=== PATIENT | female | born 1940 ===

== ENCOUNTER → 2024-07-06 10:31 | Outpatient (REF) | payer MEDICARE, MEDICAID, SELFPAY ==
[2024-07-06 11:26] LABS: % Basophils 0.7 % (0-2); % Eosinophils 2.6 % (0-6); % Immature Granulocytes 0.3 % (0-0.5); % Lymphocytes 37.4 % (20.5-51.1); % Monocytes 10.8 % (1.7-9.3); % Neutrophils 48.2 % (42.2-75.2); Absolute Eosinophils 0.2 10^3/uL (0-0.7); Absolute Lymphocytes 2.1 10^3/uL (1.2-3.4); Absolute Monocytes 0.6 10^3/uL (0.1-0.6); Absolute Neutrophils 2.8 10^3/uL (1.4-6.5); Hematocrit 37.5 % (37.0-47.0); Hemoglobin 12.2 g/dL (12.0-16.0); Mean Corp Hgb Conc. 32.5 g/dL (33.0-37.0); Mean Corpuscular Hgb 29.6 pg (27.0-31.0); Mean Platelet Volume 9.7 fL (7.4-10.4); Nucleated Red Blood Cells % 0 %; Platelet Count 270 10^3/uL (130-400); Red Blood Cell Count 4.12 10^6/uL (4.20-5.40); Red Cell Dist. Width 15.6 % (11.5-14.5); White Blood Cell Count 5.7 10^3/uL (4.8-10.8)
[2024-07-06 11:35] LABS: ALT (SGPT) 22 U/L (0-35); AST (SGOT) 28 U/L (14-36); Albumin 3.4 g/dl (3.5-5.0); Alkaline Phosphatase 152 U/L (38-126); Blood Urea Nitrogen 42 mg/dl (7-17); Calcium 9.5 mg/dl (8.4-10.2); Carbon Dioxide 21 mmol/L (22-30); Chloride 106 mmol/L (98-107); Glucose 83 mg/dl (70-99); HDL Cholesterol 29 mg/dl; LDL Cholesterol, Calculated 59 mg/dl; Potassium 4.1 mmol/L (3.5-5.1); Sodium 142 mmol/L (135-145); Total Bilirubin 0.4 mg/dl (0.2-1.3); Total Cholesterol 112 mg/dl (50-199); Total Protein 6.1 g/dl (6.3-8.2); Triglyceride 123 mg/dl (10-149); Very Low Density Lipoprotein 24 mg/dl (0-30); eGFR 44.36
[2024-07-06 11:52] LABS: Vitamin D, 25-OH*** 39.3 ng/mL (30-80)
[2024-07-06 12:25] LABS: Vitamin B12 882 pg/ml (239-931)
== END ==
LOC: OLABN 10:31
PROVIDERS: ATTENDING PHYSICIAN Internal Medicine Geriatric Medicine
DX: E78.5 Hyperlipidemia, unspecified (principal); I50.22 Chronic systolic (congestive) heart failure; I42.9 Cardiomyopathy, unspecified; E53.8 Deficiency of other specified B group vitamins; E55.9 Vitamin D deficiency, unspecified
CPT/HCPCS: 36415; 80053; 80061; 82306; 82607; 85025

== ENCOUNTER → 2024-07-07 07:59 | Outpatient (REF) | payer MEDICARE, MEDICAID, SELFPAY ==
[2024-07-07 08:31] LABS: NT-proBNP 1690 pg/ml
== END ==
LOC: OLABN 07:59
PROVIDERS: ATTENDING PHYSICIAN Internal Medicine Geriatric Medicine
DX: E78.5 Hyperlipidemia, unspecified (principal); I50.22 Chronic systolic (congestive) heart failure; I42.9 Cardiomyopathy, unspecified
CPT/HCPCS: 36415; 83880

== ENCOUNTER → 2024-07-10 10:56 | Outpatient (REF) | payer MEDICARE, MEDICAID, SELFPAY ==
[2024-07-10 11:28] LABS: % Basophils 0.3 % (0-2); % Eosinophils 3.1 % (0-6); % Immature Granulocytes 0.3 % (0-0.5); % Lymphocytes 27.5 % (20.5-51.1); % Monocytes 8.5 % (1.7-9.3); % Neutrophils 60.3 % (42.2-75.2); Absolute Eosinophils 0.2 10^3/uL (0-0.7); Absolute Monocytes 0.6 10^3/uL (0.1-0.6); Absolute Neutrophils 4.5 10^3/uL (1.4-6.5); Hematocrit 37.3 % (37.0-47.0); Hemoglobin 12.1 g/dL (12.0-16.0); Mean Corp Hgb Conc. 32.4 g/dL (33.0-37.0); Mean Corpuscular Hgb 28.4 pg (27.0-31.0); Mean Corpuscular Volume 87.6 fL (81.0-99.0); Nucleated Red Blood Cells % 0 %; Platelet Count 257 10^3/uL (130-400); Red Blood Cell Count 4.26 10^6/uL (4.20-5.40); Red Cell Dist. Width 15.9 % (11.5-14.5); White Blood Cell Count 7.4 10^3/uL (4.8-10.8)
[2024-07-10 11:45] LABS: NT-proBNP 1630 pg/ml
== END ==
LOC: OLABN 10:56
PROVIDERS: ATTENDING PHYSICIAN Internal Medicine Geriatric Medicine
DX: E78.5 Hyperlipidemia, unspecified (principal); I50.22 Chronic systolic (congestive) heart failure; I42.9 Cardiomyopathy, unspecified; R79.9 Abnormal finding of blood chemistry, unspecified
CPT/HCPCS: 36415; 83880; 85025

== ENCOUNTER → 2024-07-11 09:21 | Outpatient (REF) | payer MEDICARE, MEDICAID, SELFPAY ==
[2024-07-11 12:45] LABS: Albumin 3.2 g/dl (3.5-5.0); Blood Urea Nitrogen 35 mg/dl (7-17); Calcium 9.4 mg/dl (8.4-10.2); Carbon Dioxide 24 mmol/L (22-30); Chloride 105 mmol/L (98-107); Glucose 90 mg/dl (70-99); Phosphorus 3.6 mg/dl (2.5-4.5); Sodium 142 mmol/L (135-145); eGFR 44.36
[2024-07-11 12:50] LABS: Potassium 4.1 mmol/L (3.5-5.1)
== END ==
LOC: OLABN 09:21
PROVIDERS: ATTENDING PHYSICIAN Internal Medicine Geriatric Medicine
DX: R79.9 Abnormal finding of blood chemistry, unspecified (principal)
CPT/HCPCS: 36415; 80069

== ENCOUNTER → 2024-07-25 12:29 | Outpatient (REF) | payer MEDICARE, MEDICAID, SELFPAY | LOC: RAD 12:29 | PROVIDERS: ATTENDING PHYSICIAN Internal Medicine Geriatric Medicine | DX: J84.9 Interstitial pulmonary disease, unspecified (principal); R09.89 Other specified symptoms and signs involving the circulatory and respiratory systems | CPT/HCPCS: 71250 ==

== ENCOUNTER → 2024-09-07 09:50 | Outpatient (REF) | payer MEDICARE, MEDICAID, SELFPAY ==
[2024-09-07 10:46] LABS: % Basophils 0.4 % (0-2); % Eosinophils 1.7 % (0-6); % Immature Granulocytes 0.4 % (0-0.5); % Lymphocytes 30.2 % (20.5-51.1); % Monocytes 9.3 % (1.7-9.3); Absolute Eosinophils 0.1 10^3/uL (0-0.7); Absolute Lymphocytes 2.1 10^3/uL (1.2-3.4); Absolute Monocytes 0.7 10^3/uL (0.1-0.6); Absolute Neutrophils 4.1 10^3/uL (1.4-6.5); Hematocrit 38.5 % (37.0-47.0); Hemoglobin 12.6 g/dL (12.0-16.0); Mean Corp Hgb Conc. 32.7 g/dL (33.0-37.0); Mean Corpuscular Hgb 29.9 pg (27.0-31.0); Mean Corpuscular Volume 91.4 fL (81.0-99.0); Mean Platelet Volume 9.6 fL (7.4-10.4); Nucleated Red Blood Cells % 0 %; Platelet Count 292 10^3/uL (130-400); Red Blood Cell Count 4.21 10^6/uL (4.20-5.40); Red Cell Dist. Width 15.3 % (11.5-14.5)
[2024-09-07 10:51] LABS: Urine Albumin 1+ (Neg - Trace); Urine Bilirubin Negative (Negative); Urine Character Very Cloudy (Clear); Urine Color Yellow; Urine Glucose Negative (Negative); Urine Ketone Negative (Negative); Urine Leukocyte 2+ (Negative); Urine Nitrite Positive (Negative); Urine Occult Blood 2+ (Negative); Urine Urobilinogen Negative (Neg - 1+)
[2024-09-07 11:01] LABS: ALT (SGPT) 26 U/L (0-35); AST (SGOT) 32 U/L (14-36); Albumin 3.6 g/dl (3.5-5.0); Alkaline Phosphatase 191 U/L (38-126); Blood Urea Nitrogen 31 mg/dl (7-17); Calcium 9.7 mg/dl (8.4-10.2); Carbon Dioxide 29 mmol/L (22-30); Chloride 104 mmol/L (98-107); Glucose 101 mg/dl (70-99); Potassium 4.1 mmol/L (3.5-5.1); Sodium 144 mmol/L (135-145); Total Bilirubin 0.6 mg/dl (0.2-1.3); Total Protein 6.4 g/dl (6.3-8.2); eGFR 44.36
[2024-09-07 11:10] LABS: NT-proBNP 3960 pg/ml
[2024-09-07 13:34] LABS: Urine Mucus Few; Urine Squamous Cell 0-2 /LPF (Few)
[2024-09-07 13:35] LABS: Urine Red Blood Cell 0-2 /HPF (0-2); Urine White Cell >100 /HPF (0-5)
[2024-09-07 13:36] LABS: Urine Bacteria Many (Negative)
== END ==
LOC: OLABN 09:50
PROVIDERS: ATTENDING PHYSICIAN Internal Medicine Geriatric Medicine
DX: R09.89 Other specified symptoms and signs involving the circulatory and respiratory systems (principal); R35.0 Frequency of micturition
CPT/HCPCS: 36415; 80053; 81003; 81015; 83880; 85025; 87077; 87086; 87186

== ENCOUNTER → 2024-09-08 06:55 | Outpatient (REF) | payer MEDICARE, MEDICAID, SELFPAY ==
[2024-09-08 07:54] LABS: Blood Urea Nitrogen 35 mg/dl (7-17); Calcium 9.6 mg/dl (8.4-10.2); Carbon Dioxide 30 mmol/L (22-30); Chloride 101 mmol/L (98-107); Glucose 93 mg/dl (70-99); Potassium 3.8 mmol/L (3.5-5.1); Sodium 143 mmol/L (135-145)
== END ==
LOC: OLABN 06:55
PROVIDERS: ATTENDING PHYSICIAN Internal Medicine Geriatric Medicine
DX: E78.5 Hyperlipidemia, unspecified (principal); I50.32 Chronic diastolic (congestive) heart failure
CPT/HCPCS: 36415; 80048

== ENCOUNTER → 2024-11-04 14:09 | Outpatient (REF) | payer MEDICARE, MEDICAID, SELFPAY | LOC: OLABN 14:09 | PROVIDERS: ATTENDING PHYSICIAN Internal Medicine Geriatric Medicine | DX: R09.89 Other specified symptoms and signs involving the circulatory and respiratory systems (principal) | CPT/HCPCS: 87502 ==

== ENCOUNTER → 2024-12-16 12:58 | Outpatient (REF) | payer MEDICARE, MEDICAID, SELFPAY ==
[2024-12-16 14:03] LABS: % Basophils 0.8 % (0-2); % Eosinophils 2.4 % (0-6); % Immature Granulocytes 0.4 % (0-0.5); % Lymphocytes 22.5 % (20.5-51.1); % Monocytes 10.2 % (1.7-9.3); % Neutrophils 63.7 % (42.2-75.2); Absolute Basophils 0.1 10^3/uL (0-0.2); Absolute Eosinophils 0.2 10^3/uL (0-0.7); Absolute Lymphocytes 1.8 10^3/uL (1.2-3.4); Absolute Monocytes 0.8 10^3/uL (0.1-0.6); Hematocrit 38.8 % (37.0-47.0); Hemoglobin 12.6 g/dL (12.0-16.0); Mean Corp Hgb Conc. 32.5 g/dL (33.0-37.0); Mean Corpuscular Hgb 29.7 pg (27.0-31.0); Mean Corpuscular Volume 91.5 fL (81.0-99.0); Mean Platelet Volume 9.8 fL (7.4-10.4); Nucleated Red Blood Cells % 0 %; Platelet Count 243 10^3/uL (130-400); Red Blood Cell Count 4.24 10^6/uL (4.20-5.40); Red Cell Dist. Width 15.5 % (11.5-14.5); White Blood Cell Count 7.8 10^3/uL (4.8-10.8)
[2024-12-16 14:27] LABS: Urine Albumin 2+ (Neg - Trace); Urine Bilirubin Negative (Negative); Urine Character Clear (Clear); Urine Color Yellow; Urine Glucose Negative (Negative); Urine Ketone Negative (Negative); Urine Leukocyte 3+ (Negative); Urine Nitrite Negative (Negative); Urine Occult Blood 2+ (Negative); Urine Urobilinogen Negative (Neg - 1+)
[2024-12-16 15:12] LABS: Urine Bacteria Many (Negative); Urine Squamous Cell 0-2 /LPF (Few); Urine White Cell 26-30 /HPF (0-5)
[2024-12-16 18:54] LABS: ALT (SGPT) 15 U/L (0-35); AST (SGOT) 24 U/L (14-36); Albumin 3.6 g/dl (3.5-5.0); Alkaline Phosphatase 153 U/L (38-126); Blood Urea Nitrogen 30 mg/dl (7-17); Calcium 9.4 mg/dl (8.4-10.2); Carbon Dioxide 26 mmol/L (22-30); Chloride 104 mmol/L (98-107); Glucose 163 mg/dl (70-99); Sodium 138 mmol/L (135-145); Total Bilirubin 0.5 mg/dl (0.2-1.3); Total Protein 6.6 g/dl (6.3-8.2); eGFR 44.08
== END ==
LOC: OLABN 12:58
PROVIDERS: ATTENDING PHYSICIAN Internal Medicine Geriatric Medicine
DX: N18.32 Chronic kidney disease, stage 3b (principal); R30.9 Painful micturition, unspecified
CPT/HCPCS: 80053; 81003; 81015; 85025; 87077; 87086; 87186

== ENCOUNTER → 2025-01-30 13:45 | Outpatient (REF) | payer MEDICARE, MEDICAID, SELFPAY ==
[2025-01-30 16:22] LABS: Urine Albumin 3+ (Neg - Trace); Urine Bilirubin Negative (Negative); Urine Character Cloudy (Clear); Urine Color Yellow; Urine Glucose Negative (Negative); Urine Ketone Negative (Negative); Urine Leukocyte 3+ (Negative); Urine Nitrite Positive (Negative); Urine Occult Blood 4+ (Negative); Urine Specific Gravity 1.025 (<1.030); Urine Urobilinogen Negative (Neg - 1+)
[2025-01-30 16:54] LABS: Urine Squamous Cell 0-2 /LPF (Few)
[2025-01-30 16:55] LABS: Urine Amorphous Seen; Urine Bacteria Many (Negative); Urine White Cell >100 /HPF (0-5)
== END ==
LOC: OLABN 13:45
PROVIDERS: ATTENDING PHYSICIAN Internal Medicine Geriatric Medicine
DX: R30.9 Painful micturition, unspecified (principal)
CPT/HCPCS: 81003; 81015; 87077; 87086; 87186

== ENCOUNTER → 2025-02-19 09:55 | Outpatient (REF) | payer MEDICARE, MEDICAID, SELFPAY ==
[2025-02-19 11:13] LABS: % Basophils 0.5 % (0-2); % Eosinophils 2.4 % (0-6); % Immature Granulocytes 0.3 % (0-0.5); % Lymphocytes 34.5 % (20.5-51.1); % Monocytes 8.9 % (1.7-9.3); % Neutrophils 53.4 % (42.2-75.2); Absolute Eosinophils 0.2 10^3/uL (0-0.7); Absolute Monocytes 0.8 10^3/uL (0.1-0.6); Absolute Neutrophils 4.7 10^3/uL (1.4-6.5); Hematocrit 41.7 % (37.0-47.0); Hemoglobin 13.5 g/dL (12.0-16.0); Mean Corp Hgb Conc. 32.4 g/dL (33.0-37.0); Mean Corpuscular Hgb 30.4 pg (27.0-31.0); Mean Corpuscular Volume 93.9 fL (81.0-99.0); Mean Platelet Volume 9.9 fL (7.4-10.4); Nucleated Red Blood Cells % 0 %; Platelet Count 320 10^3/uL (130-400); Red Blood Cell Count 4.44 10^6/uL (4.20-5.40); Red Cell Dist. Width 15.1 % (11.5-14.5); White Blood Cell Count 8.8 10^3/uL (4.8-10.8)
[2025-02-19 11:46] LABS: ALT (SGPT) 14 U/L (0-35); AST (SGOT) 24 U/L (14-36); Albumin 3.9 g/dl (3.5-5.0); Alkaline Phosphatase 170 U/L (38-126); Blood Urea Nitrogen 20 mg/dl (7-17); Carbon Dioxide 26 mmol/L (22-30); Chloride 104 mmol/L (98-107); Glucose 91 mg/dl (70-99); HDL Cholesterol 33 mg/dl; LDL Cholesterol, Calculated 71 mg/dl; Potassium 4.2 mmol/L (3.5-5.1); Sodium 141 mmol/L (135-145); Total Bilirubin 0.8 mg/dl (0.2-1.3); Total Cholesterol 135 mg/dl (50-199); Total Protein 6.5 g/dl (6.3-8.2); Triglyceride 159 mg/dl (10-149); Very Low Density Lipoprotein 31 mg/dl (0-30); eGFR 44.08
[2025-02-19 11:55] LABS: NT-proBNP 2650 pg/ml
[2025-02-19 12:06] LABS: Glycohemoglobin (HgbA1c) 5.8 % (4.0-5.6)
[2025-02-19 12:34] LABS: Vitamin B12 980 pg/ml (239-931)
== END ==
LOC: OLABN 09:55
PROVIDERS: ATTENDING PHYSICIAN Internal Medicine Geriatric Medicine
DX: I50.22 Chronic systolic (congestive) heart failure (principal); E78.5 Hyperlipidemia, unspecified; I10 Essential (primary) hypertension; F03.918 Unspecified dementia, unspecified severity, with other behavioral disturbance; E53.8 Deficiency of other specified B group vitamins; E11.9 Type 2 diabetes mellitus without complications
CPT/HCPCS: 36415; 80053; 80061; 82607; 83036; 83880; 85025

== ENCOUNTER → 2025-02-23 06:45 | Outpatient (REF) | payer MEDICARE, MEDICAID, SELFPAY ==
[2025-02-23 16:53] LABS: Urine Albumin 2+ (Neg - Trace); Urine Bilirubin Negative (Negative); Urine Character Cloudy (Clear); Urine Color Yellow; Urine Glucose Negative (Negative); Urine Ketone Negative (Negative); Urine Leukocyte 3+ (Negative); Urine Nitrite Negative (Negative); Urine Occult Blood 3+ (Negative); Urine Urobilinogen Negative (Neg - 1+)
[2025-02-23 17:01] LABS: Urine Bacteria Many (Negative); Urine Red Blood Cell 0-2 /HPF (0-2); Urine Squamous Cell 0-2 /LPF (Few); Urine White Cell >100 /HPF (0-5)
== END ==
LOC: OLABN 06:45
PROVIDERS: ATTENDING PHYSICIAN Internal Medicine Geriatric Medicine
DX: R35.0 Frequency of micturition (principal)
CPT/HCPCS: 81003; 81015; 87077; 87086; 87186

== ENCOUNTER 2025-02-27 23:06 | Observation (INO) | payer MEDICARE, MEDICAID, SELFPAY ==
[2025-02-27 19:21] VITALS: BP 132/74
[2025-02-27 19:24] VITALS: BP 132/74; BMI 27.6
[2025-02-27 19:53] LABS: % Basophils 0.5 % (0-2); % Eosinophils 2.1 % (0-6); % Immature Granulocytes 0.5 % (0-0.5); % Lymphocytes 25.8 % (20.5-51.1); % Monocytes 8.7 % (1.7-9.3); % Neutrophils 62.4 % (42.2-75.2); Absolute Eosinophils 0.2 10^3/uL (0-0.7); Absolute Monocytes 0.7 10^3/uL (0.1-0.6); Absolute Neutrophils 4.8 10^3/uL (1.4-6.5); Hematocrit 40.7 % (37.0-47.0); Hemoglobin 13.1 g/dL (12.0-16.0); Mean Corp Hgb Conc. 32.2 g/dL (33.0-37.0); Mean Corpuscular Volume 93.3 fL (81.0-99.0); Mean Platelet Volume 9.4 fL (7.4-10.4); Nucleated Red Blood Cells % 0 %; Platelet Count 288 10^3/uL (130-400); Red Blood Cell Count 4.36 10^6/uL (4.20-5.40); Red Cell Dist. Width 14.8 % (11.5-14.5); White Blood Cell Count 7.6 10^3/uL (4.8-10.8)
[2025-02-27 20:00] VITALS: BP 123/69
[2025-02-27 20:07] LABS: ALT (SGPT) 15 U/L (0-35); AST (SGOT) 23 U/L (14-36); Albumin 3.9 g/dl (3.5-5.0); Alkaline Phosphatase 153 U/L (38-126); Blood Urea Nitrogen 26 mg/dl (7-17); Calcium 9.3 mg/dl (8.4-10.2); Carbon Dioxide 28 mmol/L (22-30); Chloride 108 mmol/L (98-107); Estimated Creatinine Clearance 25 ml/min; Glucose 128 mg/dl (70-99); Potassium 3.6 mmol/L (3.5-5.1); Sodium 142 mmol/L (135-145); Total Bilirubin 0.5 mg/dl (0.2-1.3); Total Protein 6.6 g/dl (6.3-8.2); eGFR 36.64
[2025-02-27 20:23] LABS: Troponin I 0.089 ng/ml
[2025-02-27 21:01] VITALS: BP 127/64
--- NOTE | 2025-02-27 21:12 | ED.GENMED ---
History of Present Illness
General
Chief Complaint: Generalized Pain
Source: patient and ambulance crew
Exam Limitations: dementia
Time Seen by Provider: 02/27/25 20:35
Nursing documentation reviewed up to this point in time: agreed with
History of Present Illness
History of Present Illness:
84-year-old female presents emergency department due to chest pain, she is unable to give a history. Chest pain is listed on her EMS run sheet.
Past History
Past History
ED Past Medical History: CAD, COPD and Psychiatric (Depression)
ED Past Surgical History: Orthopedic (Bilateral hip replacement, bilateral knee replacement, bilateral ankle replacement)
Social History
Tobacco: Non-smoker
Alcohol: None
Drug: None
Living: with family
Review of Systems
Review of Systems
Allergies reviewed?: Yes
Unable to obtain full review of systems at this time due to: dementia
All Other Systems: Not applicable
Cardiac: Reports chest pain
Phy Exam
Physical Exam
Physical Exam:
Physical Exam
General: no apparent distress, not acutely ill
Neck: supple. no meningeal signs. normal posterior pharynx
Heart: s1/s2 regular rate and rhythm, no murmur. equal radial
pulses.
HEENT: Pupils equal round reactive to light, EOMI, extremely hard of hearing
Lungs: no acute respiratory distress. clear bilaterally
Abdomen: normal bowel sounds. not tender. no CVAT
Neuro: alert and oriented to person. no focal neurological deficits cranial nerves II through XII intact
Skin: no rash
Psychiatric: well kept. interactive and cooperative
Extremities: no edema. no calf tenderness. negative homans. good distal pulses
Course
Orders/Labs/Results
Orders:
Orders
02/27/25 19:16
Electrocardiogram (*1) Urgent
Reason for Study: Chest Pain
Cardiac Monitoring- Treatment ONCE
EKG- Treatment ONCE
IV Insert/Care/Rem.- Treatment PRN
O2 Therapy [RESP] Urgent
Titrate/Wean O2 to maintain O2 sat greater than (%): 90
Special Instructions: Maintain sats >/=90%
Pulse Ox/spot Check [RESP] Urgent
Quantity: 1
Special Instructions: ON ROOM AIR
02/27/25 19:45
Complete Blood Count/With Diff Urgent
Comprehensive Metabolic Panel Urgent
Troponin I Urgent
Abnormal Lab Results
02/27/25
19:45
MCHC 32.2 L g/dL
(33.0-37.0)
RDW 14.8 H %
(11.5-14.5)
Absolute Monos (auto) 0.7 H 10^3/uL
(0.1-0.6)
Chloride 108 H mmol/L
(98-107)
BUN 26 H mg/dl
(7-17)
Creatinine 1.4 H mg/dL
(0.6-1.0)
Glucose 128 H mg/dl
(70-99)
Alkaline Phosphatase 153 H U/L
(38-126)
Troponin I 0.089 H* ng/ml
02/27/25 19:45
02/27/25 19:45
Vital Signs
Initial and Last Documented VS:
Initial Vital Signs
Pulse Resp Pulse Ox
69 14 96
02/27/25 19:20 02/27/25 19:20 02/27/25 19:20
Last Documented Vital Signs
Pulse Resp BP Pulse Ox
62 15 127/64 98
02/27/25 21:01 02/27/25 21:01 02/27/25 21:01 02/27/25 21:01
MDM/Problems Addressed
Differential Diagnosis Includes:
ACS, PE
MDM/Problems Addressed:
84-year-old female with chest pain, mildly elevated troponin. Will admit to hospitalist for trending and further evaluation. Aspirin given.
Chronic conditions affecting care: CAD
Acute Exacerbation and/or Progression of Chronic Illness: CAD
*Pulse Oximetry
Patient hypoxic: no
*EKG
Interpreted by ED Provider?: Yes
EKG Intrepretation Date: 02/27/25
EKG Intrepretation Time: 19:20
Interpretation: abnormal
Comparison EKG: no comparison EKG present
Heart Rate: 69
Rate: normal
Rhythm: sinus
[place]: left axis deviation
Interval: normal interval
QRS Pattern: right bundle branch block
Ischemia: no ischemia
*Senior Patient Account Representative Interpretation
Rate: normal
Interpretation: normal
Heart Rate: 70
Rhythm: sinus
*Critical Care Note
Total Time (30-74mins, 75-104mins- exclusive of procedures): Not Applicable
Patient Management
Social determinants of health affecting care: Living situation and Strong social support
Discussion with other providers: Hospitalist
Escalation/DeEscalation of care consider admission/obs:
admit indicated
ED Attending Note
-
Portions of this chart may have been created with voice recognition software.� Occasional wrong word or��sound alike� substitutions may have occurred due to the inherent limitations of voice recognition software.
Discharge Plan
Departure
Patient Disposition: Admit
Date of Disposition: 02/27/25
Time of Disposition: 21:19
Admit to: Telemetry
Presentation/result/management discussed w/ accepting MD/DO: Hospitalist
Patient with high blood pressure during this ER visit?: Yes
Condition: Good
Discharge Problem:
Chest pain
Prescriptions:
No Action
quetiapine 25 mg Tablet
25 mg PO DAILY
furosemide [Lasix] 40 mg Tablet
40 mg PO DAILY
acetaminophen 325 mg Tablet
650 mg PO Q4HPRN PRN (Reason: fever)
atorvastatin 20 mg Tablet
20 mg PO HS
ipratropium-albuterol 0.5 mg-3 mg(2.5 mg base)/3 mL Solution For Nebulization
3 ml INHALATION R Q6HPRN PRN (Reason: wheezing)
sennosides-docusate sodium [Senna with Docusate Sodium] 8.6-50 mg Tablet
2 tab-cap PO QPM
allopurinol 100 mg Tablet
100 mg PO DAILY
aspirin [Adult Aspirin EC Low Strength] 81 mg Tablet,Delayed Release (Dr/Ec)
81 mg PO DAILY
acetaminophen 500 mg Tablet
500 mg PO Q8HPRN PRN (Reason: mild pain)
spironolactone 25 mg Tablet
25 mg PO DAILY
methenamine hippurate 1 gram Tablet
1 g PO TU
magnesium hydroxide [Milk of Magnesia] 400 mg/5 mL Suspension
400 mg PO HSPRN PRN (Reason: constipation)
bisacodyl 10 mg Suppository
10 mg NH [id number] PRN (Reason: if no bm aftr mom)
cephalexin [Keflex] 500 mg Capsule
500 mg PO BID
Rx Instructions:
for 7 days starting 02/25/25
erythromycin 5 mg/gram (0.5 %) Ointment
1 applic BOTH EYES HS
Rx Instructions:
apply to bilateral eyes
Dermarest Psoriasis Medicated 3 % Shampoo
1 applic TOPICAL TUFR
gabapentin 300 mg Capsule
300 mg PO HS
mirtazapine 15 mg Tablet
15 mg PO HS
quetiapine 50 mg Tablet
50 mg PO HS
Systane Balance 0.6 % Drops
1 drp BOTH EYES QID
Rx Instructions:
apply to bilateral eyes
cranberry 450 mg Tablet
450 mg PO DAILY
tafamidis 61 mg Capsule
61 mg PO DAILY
cyanocobalamin (vitamin B-12) 1,000 mcg Tablet
1,000 mcg PO DAILY
cholecalciferol (vitamin D3) 1,250 mcg (50,000 unit) Tablet
1,250 mcg PO QMONTH
Rx Instructions:
every Wednesday
Referrals:
Nick Urias MD [Family Provider] -
Interventions
Interventions:
*Risk Screen - Suicide Last Done: 02/27/25 19:24
*General Assessment Last Done: 02/27/25 19:24
*Neglect/Abuse Screening Last Done: 02/27/25 19:24
*ED- Fall Risk Assessment Last Done: 02/27/25 19:24
*ED COVID-19 Vaccine History Last Done: 02/27/25 19:24
Discharge Date and Time
Print Language: SWEDISH
--- NOTE | 2025-02-27 21:51 | HPS.HSE ---
Family Physician
-
Family Physician: Nick Urias
Chief Complaint
-
Chest pain
History of Present Illness
This is a 84-year-old female with past medical history significant for hypertension, cardiac amyloidosis, CAD status post stenting, diastolic CHF, depression, CKD, mild to moderate dementia who presents to the emergency department from a nursing
home with complaints of pain in her arm and chest.
According to the skilled nursing description the patient reported to the pain center with complaint of pain that started an hour right and radiated into her chest without nausea or vomiting. The pain was intermittent but the appears to have been
getting worse each time. When I spoke to the patient in the emergency department she mostly reports pain in her right arm. She denies feeling short of breath. She denies nausea or vomiting. She currently was not complaining of pain.
In the emergency department she was afebrile, blood pressure was 126/64 with a pulse of 62 and she was satting 90% on room air. ECG shows a normal sinus rhythm with Q waves in the inferior leads. No priors for comparison. Troponin was 0.08.
CBC was unremarkable. Electrolytes unremarkable. BUN and creatinine were 26 and 1.4 respectively and glucose was 128.
Medical History
Past Medical History
Past Medical History: Reports CAD (NSTEMI status post PCI), CHF (Cardiac amyloidosis, PYP positive), HTN, Hypercholesterolemia and Other
Additional Past Medical History:
Crohn's disease
Gout
Depression
Dementia
Past Surgical History: Reports Cholecystectomy, Gynocological (Hysterectomy) and Orthopedic (Left knee replacement, right knee replacement, left hip replacement, right hip replacement)
Social History
Tobacco: Non-smoker
Alcohol: None
Drug: None
Family History
Family History: Not pertinent
Allergies / Home Medications
Allergies reflects when Allergies were last updated in [facility].
Home Medications with original date entered in [facility]
Allergy/Medication List:
Allergies
Allergy/AdvReac Type Severity Reaction Status Date / Time
codeine Allergy Nausea / Verified 02/27/25 19:23
Vomiting
hydromorphone [From Dilaudid] Allergy Hives Verified 02/27/25 19:23
ketorolac [From Toradol] Allergy Hives Verified 02/27/25 19:23
meperidine [From Demerol] Allergy Hives Verified 02/27/25 19:23
mercaptopurine Allergy Hives Verified 02/27/25 19:23
morphine Allergy Hives Verified 02/27/25 19:23
naloxone Allergy Hives Verified 02/27/25 19:23
naltrexone Allergy Unknown Verified 02/27/25 19:23
oxycodone Allergy Hives Verified 02/27/25 19:23
prochlorperazine Allergy Hives Verified 02/27/25 19:23
[From Compazine]
Sulfa (Sulfonamide Allergy Rash Verified 02/27/25 19:23
Antibiotics)
tramadol Allergy Hives Verified 02/27/25 19:23
Home Medications
acetaminophen 325 mg tablet 650 mg PO Q4HPRN PRN fever 02/27/25
acetaminophen 500 mg tablet 500 mg PO Q8HPRN PRN mild pain 02/27/25
allopurinol 100 mg tablet 100 mg PO DAILY 02/27/25
aspirin 81 mg tablet,delayed release 81 mg PO DAILY 02/27/25
atorvastatin 20 mg tablet 20 mg PO HS 02/27/25
bisacodyl 10 mg rectal suppository 10 mg MD [id number] PRN if no bm aftr mom 02/27/25
cephalexin 500 mg capsule 500 mg PO BID 02/27/25
cholecalciferol (vitamin D3) 1,250 mcg (50,000 unit) tablet 1,250 mcg PO QMONTH 02/27/25
cranberry fruit 450 mg tablet (cranberry) 450 mg PO DAILY 02/27/25
cyanocobalamin (vitamin B-12) 1,000 mcg tablet 1,000 mcg PO DAILY 02/27/25
erythromycin 5 mg/gram (0.5 %) eye ointment 1 applic BOTH EYES HS 02/27/25
furosemide 40 mg tablet (Lasix) 40 mg PO DAILY 02/27/25
gabapentin 300 mg capsule 300 mg PO HS 02/27/25
ipratropium 0.5 mg-albuterol 3 mg (2.5 mg base)/3 mL nebulization soln 3 ml inhalation R Q6HPRN PRN wheezing 02/27/25
magnesium hydroxide 400 mg/5 mL oral suspension (Milk of Magnesia) 400 mg PO HSPRN PRN constipation 02/27/25
methenamine hippurate 1 gram tablet 1 g PO TU 02/27/25
mirtazapine 15 mg tablet 15 mg PO HS 02/27/25
propylene glycol 0.6 % eye drops (Systane Balance) 1 drp BOTH EYES QID dry eye 02/27/25
quetiapine 25 mg tablet 25 mg PO DAILY 02/27/25
quetiapine 50 mg tablet 50 mg PO HS 02/27/25
salicylic acid 3 % shampoo (Dermarest Psoriasis Medicated) 1 applic topical TUFR 02/27/25
sennosides 8.6 mg-docusate sodium 50 mg tablet (Senna with Docusate Sodium) 2 tab-cap PO QPM 02/27/25
spironolactone 25 mg tablet 25 mg PO DAILY 02/27/25
tafamidis 61 mg capsule 61 mg PO DAILY 02/27/25
Review of Systems
-
History Source: Patient
Constitutional: Reports No Symptoms
EENT: Reports No Symptoms
Respiratory: Reports No Symptoms
Cardiac: Reports Chest Pain
Abdomen/GI: Reports No Symptoms
: Reports No Symptoms
Musculoskeletal: Reports No Symptoms
Skin: Reports No Symptoms
Neurological: Reports No Symptoms
Endocrine: Reports No Symptoms
Hematologic/Lymphatic: Reports No Symptoms
Psych: Reports No Symptoms
Physical Exam
Vital Signs
Vital Signs
Pulse Resp BP Pulse Ox
62 15 127/64 98
02/27/25 21:01 02/27/25 21:01 02/27/25 21:01 02/27/25 21:01
Physical Exam
General: Well Developed, Well Nourished and No Apparent Distress
HEENT: NormoCephalic, Moist mucous membranes, Atraumatic and Hearing Impaired
Respiratory: Clear
Cardiac: S1/S2 and Regular Rhythm; No Murmur or Rub
GI: Soft, Non Tender, Non Distended and Normal Bowel Sounds; No Organomegaly
Rectal: Deferred by Provider
Genito-urinary: Deferred by me
Musculoskeletal: No Clubbing, No Cyanosis, Edema, Right Upper Extremity, Edema, Left Lower Extremity (Trace ankle edema) and Edema, Right Lower Extremity (Trace ankle edema)
Skin: Warm; No Rash
Neuro: Alert, Oriented (Oriented to person and place) and Nonfocal/grossly intact
Hematologic/Lymphatic: No Lymphadenopathy
Psych: Calm
Laboratory Results
-
02/27/25 19:45
02/27/25 19:45
Laboratory Results
Total Bilirubin 0.5 mg/dl (0.2-1.3) 02/27/25 19:45
AST 23 U/L (14-36) 02/27/25 19:45
ALT 15 U/L (0-35) 02/27/25 19:45
Alkaline Phosphatase 153 U/L (38-126) H 02/27/25 19:45
Troponin I 0.089 ng/ml H* 02/27/25 19:45
Data Reviewed
-
Medical Tests (Nuc Med, Echo, EKG etc): Image Personally Visualized and interpreted
Lab Data: Labs Reviewed by me
Old Records: Reviewed
Impression/Plan
-
IMPRESSION:
84-year-old with multiple cardiac issues including CAD status post stenting, diastolic CHF and amyloid heart disease (PYP scan positive) who presents to the emergency department with complaint of chest pain from her skilled nursing. She is currently
not complain of any chest pain. She reported the chest pain appeared to be radiating down the right arm. Initial troponin was 0.08. ECG showed old Q waves in the inferior leads but no ECGs in the system for immediate comparison.
PLAN:
Chest pain -chest pain, possibly NSTEMI, do not have a prior troponin however given history of amyloidosis she may have chronic troponin elevation. Chest pain was reproducible with palpation of the chest wall.
-Admit to telemetry observation for now
-Trend troponin
-Aspirin 324 x 1 and continue 81 mg daily per home regimen
-Nitroglycerin if chest pain recurs
- Echocardiogram
-Will consult cardiology if troponin slightly trends up, if there is significant uptrending will start heparin anticoagulation
Congestive heart failure -patient appears to thalamic
-Will check baseline BMP
-Continue furosemide 40 mg daily
-Continue spironolactone
Amyloidosis of the heart
-Patient on tafamidis
UTI
- Patient on Keflex until 03/04
DVT prophylaxis�heparin subcu
CODE STATUS�full code
[2025-02-27] MEDS: LOW STRENGTH ASPIRIN 324 MG PO (21:53)
[2025-02-27 22:00] VITALS: BP 124/67
[2025-02-27 23:00] VITALS: BP 113/59
[2025-02-28 02:10] VITALS: BP 131/53; BMI 26.2
[2025-02-28 02:26] LABS: Troponin I 0.085 ng/ml
[2025-02-28] MEDS: HEPARIN 5000 UNITS SC ×2 (02:30→09:49)
[2025-02-28 02:54] LABS: Troponin I 0.095 ng/ml
[2025-02-28 03:29] VITALS: BP 134/61
[2025-02-28 06:00] VITALS: BMI 26.2
[2025-02-28 06:20] LABS: Troponin I 0.083 ng/ml
[2025-02-28 07:50] VITALS: BP 137/56
[2025-02-28 08:02] LABS: Hematocrit 38.6 % (37.0-47.0); Hemoglobin 12.5 g/dL (12.0-16.0); Mean Corp Hgb Conc. 32.4 g/dL (33.0-37.0); Mean Corpuscular Hgb 29.8 pg (27.0-31.0); Mean Corpuscular Volume 92.1 fL (81.0-99.0); Mean Platelet Volume 9.5 fL (7.4-10.4); Platelet Count 260 10^3/uL (130-400); Red Blood Cell Count 4.19 10^6/uL (4.20-5.40); White Blood Cell Count 6.8 10^3/uL (4.8-10.8)
[2025-02-28 08:49] LABS: Blood Urea Nitrogen 23 mg/dl (7-17); Calcium 9.4 mg/dl (8.4-10.2); Carbon Dioxide 28 mmol/L (22-30); Chloride 109 mmol/L (98-107); Estimated Creatinine Clearance 27 ml/min; Glucose 80 mg/dl (70-99); HDL Cholesterol 32 mg/dl; LDL Cholesterol, Calculated 49 mg/dl; Potassium 3.6 mmol/L (3.5-5.1); Sodium 142 mmol/L (135-145); Total Cholesterol 102 mg/dl (50-199); Triglyceride 109 mg/dl (10-149); Very Low Density Lipoprotein 21 mg/dl (0-30); eGFR 44.08
[2025-02-28] MEDS: ASPIR LOW (ENTERIC COATED) 81 MG PO (09:48)
[2025-02-28] MEDS: ZYLOPRIM 100 MG PO (09:48)
[2025-02-28] MEDS: REFRESH EYE DROPS (PF) 1 DROPS BOTH EYES ×2 (09:48→12:07)
[2025-02-28] MEDS: ALDACTONE 25 MG PO (09:49)
[2025-02-28] MEDS: SEROQUEL 25 MG PO (09:49)
[2025-02-28] MEDS: KEFLEX 500 MG PO (09:49)
[2025-02-28] MEDS: LASIX 40 MG PO (09:49)
--- NOTE | 2025-02-28 10:23 | CON.CAR ---
Addendum entered and electronically signed by Chito Woo MD 02/28/25 11:22:
I saw and examined the patient.
Dr Craig's note was reviewed and I agree with the note.
Comment: Caren has reproducible right-sided chest pain under her breast. She has low-level troponins and a normal echocardiogram likely indicating a nonischemic myocardial injury. I discussed findings with daughter as well as hospitalist and
agree with conservative management for now. Echocardiogram below.
EchO Feb 28 2025: CONCLUSIONS
Normal LV size and function without regional wall motion abnormalities.
LVEF is 55-60% by Rich's method of discs.
Moderate concentric LVH. Stage I diastolic dysfunction suggestive of abnormal
relaxation.
Normal right ventricular size and function.
No significant valvular disease.
Insufficient TR for estimation of PASP.
Compared to prior from October 23, 2022, MR is mild on today's study, previously
mild to moderate.
Original Note:
Consultation
Consultation Request
Date/Time Consultation Requested: 02/28/2025/01:48
Date/Time Consultation Performed: 02/28/2025/09:00
Requesting Provider: Mimi Apodaca MD
Performing Provider: Chito Woo MD
Reason for Consultation: Chest pain
Medical History
-
Chief Complaint: Chest and R arm pain
History of Present Illness:
84-year-old female with history of hypertension, hypercholesterolemia, cardiac amyloidosis, CAD (NSTEMI, PCI), diastolic CHF, CKD, dementia, depression, gout, Crohn's, who presents from senior living with right arm pain radiating to substernal chest.
Pt was unable to give a good history due to being profoundly hard of hearing and possibly dementia. When evaluated in the ED, she denied SOB, nausea or vomiting. EKG showed NSR with Q waves in inferior leads. Troponin on arrival was 0.08, and has
since peaked at 0.095. She has remained hemodynamically table.
When I spoke to her this morning, she appeared more concerned with her right arm pain, but also reported chest pain and RLQ abdominal pain. She reports that pain started while she was 'sitting'. Collateral information obtained from her daughter
reveals that she was agitated at the senior living and had to be restrained.
Cardiology was consulted to evaluate for cardiac cause of chest pain.
Past Medical History
Past Medical History: CAD, CHF, HTN, Hypercholesterolemia and Other (CKD, dementia, depression, gout, crohn's)
Past Surgical History: Cholecystectomy, Gynecological (hysterectomy) and Orthopedic (bilateral hip and knee replacements)
Social History
Tobacco: Former Smoker (quit 60 years ago)
Alcohol: None
Drug: None
Living: Prison
Family History
Family History: Reviewed & Not Pertinent
Allergies / Home Medications
Allergy/AdvReac Type Severity Reaction Status Date / Time
codeine Allergy Nausea / Verified 02/27/25 19:23
Vomiting
hydromorphone [From Dilaudid] Allergy Hives Verified 02/27/25 19:23
ketorolac [From Toradol] Allergy Hives Verified 02/27/25 19:23
meperidine [From Demerol] Allergy Hives Verified 02/27/25 19:23
mercaptopurine Allergy Hives Verified 02/27/25 19:23
morphine Allergy Hives Verified 02/27/25 19:23
naloxone Allergy Hives Verified 02/27/25 19:23
naltrexone Allergy Unknown Verified 02/27/25 19:23
oxycodone Allergy Hives Verified 02/27/25 19:23
prochlorperazine Allergy Hives Verified 02/27/25 19:23
[From Compazine]
Sulfa (Sulfonamide Allergy Rash Verified 02/27/25 19:23
Antibiotics)
tramadol Allergy Hives Verified 02/27/25 19:23
�Medication �Instructions �Recorded �Confirmed �Type
acetaminophen 325 mg tablet 650 mg PO Q4HPRN PRN fever 02/27/25 02/27/25 History
acetaminophen 500 mg tablet 500 mg PO Q8HPRN PRN mild pain 02/27/25 02/27/25 History
allopurinol 100 mg tablet 100 mg PO DAILY Gout 02/27/25 02/27/25 History
aspirin 81 mg tablet,delayed 81 mg PO DAILY Blood Clot 02/27/25 02/27/25 History
release Prevention/Tx
atorvastatin 20 mg tablet 20 mg PO HS High Cholesterol 02/27/25 02/27/25 History
bisacodyl 10 mg rectal suppository 10 mg NE [id number] PRN if no bm aftr 02/27/25 02/27/25 History
mom
cephalexin 500 mg capsule 500 mg PO BID Infection 02/27/25 02/27/25 History
cholecalciferol (vitamin D3) 1,250 1,250 mcg PO QMONTH Supplement 02/27/25 02/27/25 History
mcg (50,000 unit) tablet
cranberry fruit 450 mg tablet 450 mg PO DAILY 02/27/25 02/27/25 History
(cranberry)
cyanocobalamin (vitamin B-12) 1,000 mcg PO DAILY Supplement 02/27/25 02/27/25 History
1,000 mcg tablet
erythromycin 5 mg/gram (0.5 %) eye 1 applic BOTH EYES HS 02/27/25 02/27/25 History
ointment
furosemide 40 mg tablet (Lasix) 40 mg PO DAILY Fluid 02/27/25 02/27/25 History
Retention/Swelling
gabapentin 300 mg capsule 300 mg PO HS Neurological Condition 02/27/25 02/27/25 History
ipratropium 0.5 mg-albuterol 3 mg 3 ml inhalation R Q6HPRN PRN 02/27/25 02/27/25 History
(2.5 mg base)/3 mL nebulization wheezing
soln
magnesium hydroxide 400 mg/5 mL 400 mg PO HSPRN PRN constipation 02/27/25 02/27/25 History
oral suspension (Milk of Magnesia)
methenamine hippurate 1 gram tablet 1 g PO TU Infection 02/27/25 02/27/25 History
mirtazapine 15 mg tablet 15 mg PO HS Sleep 02/27/25 02/27/25 History
propylene glycol 0.6 % eye drops 1 drp BOTH EYES QID dry eye 02/27/25 02/27/25 History
(Systane Balance)
quetiapine 25 mg tablet 25 mg PO DAILY Mental 02/27/25 02/27/25 History
Health/Anxiety
quetiapine 50 mg tablet 50 mg PO HS Mental Health/Anxiety 02/27/25 02/27/25 History
salicylic acid 3 % shampoo 1 applic topical TUFR 02/27/25 02/27/25 History
(Dermarest Psoriasis Medicated)
sennosides 8.6 mg-docusate sodium 2 tab-cap PO QPM Constipation 02/27/25 02/27/25 History
50 mg tablet (Senna with Docusate
Sodium)
spironolactone 25 mg tablet 25 mg PO DAILY Fluid 02/27/25 02/27/25 History
Retention/Swelling
tafamidis 61 mg capsule 61 mg PO DAILY 02/27/25 02/27/25 History
Review of Systems
-
Unable to obtain full review of systems at this time due to: Dementia
History Source: Patient
Respiratory: Other (no trouble breathing)
Cardiac: Chest Pain and Other (no palpitations)
Abdomen/GI: Abdominal Pain (RLQ)
Musculoskeletal: Other (Right forearm and R arm pain)
Physical Exam
Vital Signs
Temp Pulse Resp BP Pulse Ox
97.6 F 54 16 137/56 98
02/28/25 07:50 02/28/25 07:50 02/28/25 07:50 02/28/25 07:50 02/28/25 07:50
Lab Results
02/28/25 07:25
02/28/25 07:50
Troponin I 0.083 ng/ml H* 02/28/25 05:23
Physical Exam
General: Well Developed, Well Nourished, No Apparent Distress and Comfortable
HEENT: Normocephalic, Anicteric and Other
Respiratory: Clear and Non Labored Respirations; Negative Wheezes, Crackles, Rhonchi or Accessory Resp Muscle Use
Cardiac: S1/S2 and Regular Rhythm; Negative Murmur, Rub, Peripheral Edema, Calf Tenderness or HJR
GI: Soft, Non Distended, Normal Bowel Sounds and Tender (RLQ)
Musculoskeletal: No Cyanosis, No Edema and Other (Sternal chest wall tenderness)
Skin: Warm and Dry
Neuro: Awake, Alert and Oriented
Psych: Calm
Impression / Plan
-
84-year-old female with history of hypertension, hypercholesterolemia, cardiac amyloidosis, CAD (NSTEMI, PCI), diastolic CHF, CKD, dementia, depression, gout, Crohn's, who presents with right arm and chest pain.
Right arm and sternal chest pain:
Elevated troponin:
- Unlikely acute coronary syndrome given unremarkable troponin and EKG. Sternal tenderness on physical exam suggests possible musculoskeletal cause. Collateral info from daughter revealed she was agitated at senior living, falling her arms and had to
be restrained.
- History of CAD and diastolic dysfunction/cardiac amyloidosis
- For echo today
Hypercholesterolemia:
- LDL at goal <55 with CAD history
- Continue Atorvastatin 20mg
HTN:
- Controlled
HFpEF:
Denies chest pain, does not appear acutely fluid overloaded.
- continue home dose lasix
DATA:
Echo 10/2022:
1. Normal left ventricular function with ejection fraction range of 60 to 65%.
Stage II diastolic dysfunction P
2. Normal RV function.
3. Mild to moderate MR, trace AR and mild TR
4. RV systolic was unable to be estimated due to poor Doppler envelope
--- NOTE | 2025-02-28 10:51 | W.PN.HOSP.TC ---
Today's Communication/Plan
-
see plan
Assessment / Plan
Assessment / Plan
84-year-old with multiple cardiac issues including CAD status post stenting, diastolic CHF and amyloid heart disease (PYP scan positive) who presents to the emergency department with complaint of chest pain from her fdc. She is currently
not complain of any chest pain. She reported the chest pain appeared to be radiating down the right arm. Initial troponin was 0.08. ECG showed old Q waves in the inferior leads but no ECGs in the system for immediate comparison.
PLAN:
Chest pain more likely MSK versus NSTEMI, mild Troponin elevation; patient has reproducible chest pain on exam
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
-TTE
-pain control wtih tylenol PRN
-appreciate Cardiology
Congestive heart failure -patient appears to euvolemic
-Will check baseline BMP
-Continue furosemide 40 mg daily
-Continue spironolactone
Amyloidosis of the heart
-Patient on tafamidis
UTI
- Patient on Keflex until 03/04
DVT prophylaxis�heparin subcu
CODE STATUS�full code
Anticipated Discharge: 24 - 48 hours
Subjective/Interval History
-
Date of Service: February 28, 2025
denies pain
when I touched chest she states it hurts
Objective Data
-
Labs:
Laboratory Results
02/28/25 02/28/25 02/28/25
06:55 07:25 07:50
WBC Cancelled 6.8
Hgb Cancelled 12.5
Hct Cancelled 38.6
Plt Count Cancelled 260
Sodium Cancelled 142
Potassium Cancelled 3.6
Chloride Cancelled 109 H
Carbon Dioxide Cancelled 28
BUN Cancelled 23 H
Creatinine Cancelled 1.2 H
Glucose Cancelled 80
Calcium Cancelled 9.4
Vital Signs:
Vital Signs
Temp Pulse Resp BP Pulse Ox
97.6 F 54 16 137/56 98
02/28/25 07:50 02/28/25 07:50 02/28/25 07:50 02/28/25 07:50 02/28/25 07:50
I&O
02/27/25 02/28/25 03/01/25
06:59 06:59 06:59
Intake Total 240 / 240
Balance 240 / 240
Review of Systems
-
Unable to obtain full review of systems at this time due to: Dementia
History Source: Patient
Physical Exam
-
General: No Apparent Distress and Appears Chronically Ill
HEENT: Hearing Impaired
Respiratory: Clear to Auscultation; Negative Wheezes
Cardiac: Regular Rhythm and S1/S2
GI: Soft and Nontender
Musculoskeletal: No Edema
Skin: Warm and Dry; Negative Rash
Neuro: AO x 3
Psych: Calm
Data Reviewed
-
Diagnostic Radiology: Report Reviewed by me
Labs: Labs Reviewed by me
--- NOTE | 2025-02-28 10:54 | CM ---
Addendum entered by Carmelita Alexandre 02/28/25 14:24:
Patient stable for d/c.
Spoke w/ Clem/[facility] gerardo, agreeable for patient to return today
Updated daughter, agreeable to ambulance transport back to . Forms faxed to [address] [place] [address] to arrange
[facility]
Report: [phone]

Original Note:
Patient w/ dementia, spoke w/ daughter, Catrachita Manzo for initial assessment. Patient is a 84-year-old female with past medical history significant for hypertension, cardiac amyloidosis, CAD status post stenting, diastolic CHF, depression, CKD, mild to
moderate dementia who presents [facility] the emergency department from a [facility] with complaints of pain in her arm and chest.
Patient is a LTC resident at [facility]. Per Catrachita Manzo, patient has been at [facility] since June 2024, was prev at [facility] for LTC. Patient is w/c bound, assisted w/ transfers and ADLs. Per Catrachita Manzo, patient cannot stand and
doesn't attempt to walk but has been working w/ PT in hospital and has been walking a little. Patient can only self feed independently. Rehab at [facility] in the past.
PCP: Nick Urias
Pharmacy: [facility]
Patient currently admitted as obs. DOTTIE form verbally reviewed w/ daughter, copy left at bedside, copy on chart
Plan: Return to [facility] LTC when stable
[2025-02-28 11:00] VITALS: BP 140/63
--- NOTE | 2025-02-28 13:38 | W.DS.TRANS ---
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
-
Discharge Instructions:
Discharge Diagnosis/Procedures musculoskeletal chest pain
Diet Regular
Activity As tolerated
Driving Restrictions No driving
Bathing Restrictions None
Other Services PT,OT
Instructions:
Stand-Alone Forms:
Changes to Home Medications: No
Discharge Medications:
DC Medications w/original date entered in Object [employer]
allopurinol 100 mg tablet 100 mg PO DAILY Gout 02/27/25
aspirin 81 mg tablet,delayed release 81 mg PO DAILY Blood Clot Prevention/Tx 02/27/25
atorvastatin 20 mg tablet 20 mg PO HS High Cholesterol 02/27/25
bisacodyl 10 mg rectal suppository 10 mg SC [id number] PRN if no bm aftr mom 02/27/25
cephalexin 500 mg capsule 500 mg PO BID Infection 02/27/25
cholecalciferol (vitamin D3) 1,250 mcg (50,000 unit) tablet 1,250 mcg PO QMONTH Supplement 02/27/25
cranberry fruit 450 mg tablet (cranberry) 450 mg PO DAILY 02/27/25
cyanocobalamin (vitamin B-12) 1,000 mcg tablet 1,000 mcg PO DAILY Supplement 02/27/25
erythromycin 5 mg/gram (0.5 %) eye ointment 1 applic BOTH EYES HS 02/27/25
furosemide 40 mg tablet (Lasix) 40 mg PO DAILY Fluid Retention/Swelling 02/27/25
gabapentin 300 mg capsule 300 mg PO HS Neurological Condition 02/27/25
ipratropium 0.5 mg-albuterol 3 mg (2.5 mg base)/3 mL nebulization soln 3 ml inhalation R Q6HPRN PRN wheezing 02/27/25
magnesium hydroxide 400 mg/5 mL oral suspension (Milk of Magnesia) 400 mg PO HSPRN PRN constipation 02/27/25
methenamine hippurate 1 gram tablet 1 g PO TU Infection 02/27/25
mirtazapine 15 mg tablet 15 mg PO HS Sleep 02/27/25
propylene glycol 0.6 % eye drops (Systane Balance) 1 drp BOTH EYES QID dry eye 02/27/25
quetiapine 25 mg tablet 25 mg PO DAILY Mental Health/Anxiety 02/27/25
quetiapine 50 mg tablet 50 mg PO HS Mental Health/Anxiety 02/27/25
salicylic acid 3 % shampoo (Dermarest Psoriasis Medicated) 1 applic topical TUFR 02/27/25
sennosides 8.6 mg-docusate sodium 50 mg tablet (Senna with Docusate Sodium) 2 tab-cap PO QPM Constipation 02/27/25
spironolactone 25 mg tablet 25 mg PO DAILY Fluid Retention/Swelling 02/27/25
tafamidis 61 mg capsule 61 mg PO DAILY 02/27/25
acetaminophen 325 mg tablet 650 mg (2 x 325 mg) PO Q4HPRN PRN fever, mild pain #0 tabs 02/28/25
Home Medication Changes
Pending Results: No
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
[2025-02-28 15:30] VITALS: BP 135/71
== END 2025-02-28 16:06 ==
LOC: 4 EAST ACU 23:06
PROVIDERS: ADMITTING PHYSICIAN Internal Medicine; ATTENDING PHYSICIAN Student in an Organized Health Care Education/Training Program; EMERGENCY PHYSICIAN Emergency Medicine; FAMILY PHYSICIAN Internal Medicine Geriatric Medicine; OTHER PHYSICIAN Internal Medicine Cardiovascular Disease
DX: R07.2 Precordial pain (principal); M79.601 Pain in right arm; R07.89 Other chest pain; N39.0 Urinary tract infection, site not specified; R00.1 Bradycardia, unspecified; I5A Non-ischemic myocardial injury (non-traumatic); E85.4 Organ-limited amyloidosis; I43 Cardiomyopathy in diseases classified elsewhere; F32.A Depression, unspecified; F03.B3 Unspecified dementia, moderate, with mood disturbance; I25.10 Atherosclerotic heart disease of native coronary artery without angina pectoris; J44.9 Chronic obstructive pulmonary disease, unspecified; I45.10 Unspecified right bundle-branch block; K50.90 Crohn's disease, unspecified, without complications; M10.9 Gout, unspecified; I13.0 Hypertensive heart and chronic kidney disease with heart failure and stage 1 through stage 4 chronic kidney disease, or unspecified chronic kidney disease; I50.32 Chronic diastolic (congestive) heart failure; N18.9 Chronic kidney disease, unspecified; E78.00 Pure hypercholesterolemia, unspecified; I25.2 Old myocardial infarction; Z90.49 Acquired absence of other specified parts of digestive tract; Z95.5 Presence of coronary angioplasty implant and graft; Z96.643 Presence of artificial hip joint, bilateral; Z96.653 Presence of artificial knee joint, bilateral; Z96.662 Presence of left artificial ankle joint; Z96.661 Presence of right artificial ankle joint; Z79.82 Long term (current) use of aspirin; Z79.899 Other long term (current) drug therapy; Z88.5 Allergy status to narcotic agent; Z88.2 Allergy status to sulfonamides; Z88.8 Allergy status to other drugs, medicaments and biological substances; Z87.891 Personal history of nicotine dependence; Z90.710 Acquired absence of both cervix and uterus
CPT/HCPCS: 80048; 80053; 80061; 84484; 85025; 85027; 93005; 93306; 99285; G0378

== ENCOUNTER → 2025-03-15 09:59 | Outpatient (REF) | payer MEDICARE, MEDICAID, SELFPAY ==
[2025-03-15 11:21] LABS: Uric Acid 6.9 mg/dl (2.5-6.2)
== END ==
LOC: OLABN 09:59
PROVIDERS: ATTENDING PHYSICIAN Internal Medicine Geriatric Medicine
DX: E79.0 Hyperuricemia without signs of inflammatory arthritis and tophaceous disease (principal)
CPT/HCPCS: 36415; 84550

== ENCOUNTER 2025-04-12 11:47 | Emergency (ER) | payer MEDICARE, MEDICAID, SELFPAY ==
[2025-04-12] VITALS (10 sets, daily range): BP systolic 100–152; BP diastolic 50–69; BMI 30.3
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
[2025-04-12 13:02] LABS: % Basophils 0.5 % (0-2); % Eosinophils 2.3 % (0-6); % Immature Granulocytes 0.6 % (0-0.5); % Lymphocytes 32.3 % (20.5-51.1); % Monocytes 8.4 % (1.7-9.3); % Neutrophils 55.9 % (42.2-75.2); Absolute Eosinophils 0.1 10^3/uL (0-0.7); Absolute Monocytes 0.5 10^3/uL (0.1-0.6); Absolute Neutrophils 3.5 10^3/uL (1.4-6.5); Hematocrit 37.2 % (37.0-47.0); Hemoglobin 11.8 g/dL (12.0-16.0); Mean Corp Hgb Conc. 31.7 g/dL (33.0-37.0); Mean Corpuscular Volume 94.7 fL (81.0-99.0); Mean Platelet Volume 9.1 fL (7.4-10.4); Nucleated Red Blood Cells % 0 %; Platelet Count 269 10^3/uL (130-400); Red Blood Cell Count 3.93 10^6/uL (4.20-5.40); Red Cell Dist. Width 14.6 % (11.5-14.5); White Blood Cell Count 6.2 10^3/uL (4.8-10.8)
[2025-04-12 13:29] LABS: Troponin I 0.081 ng/ml
[2025-04-12 15:23] LABS: ALT (SGPT) 11 U/L (0-35); AST (SGOT) 19 U/L (14-36); Albumin 3.2 g/dl (3.5-5.0); Alkaline Phosphatase 119 U/L (38-126); Blood Urea Nitrogen 26 mg/dl (7-17); Calcium 9.1 mg/dl (8.4-10.2); Carbon Dioxide 26 mmol/L (22-30); Chloride 109 mmol/L (98-107); Glucose 115 mg/dl (70-99); Potassium 3.5 mmol/L (3.5-5.1); Sodium 141 mmol/L (135-145); Total Bilirubin 0.4 mg/dl (0.2-1.3); Total Protein 5.7 g/dl (6.3-8.2); eGFR 48.94
[2025-04-12 15:36] LABS: Troponin I 0.088 ng/ml
== END 2025-04-12 20:41 | disposition home or self-care (01) ==
LOC: EMR 11:47
PROVIDERS: Physician Assistant; EMERGENCY PHYSICIAN Emergency Medicine; FAMILY PHYSICIAN Internal Medicine Geriatric Medicine
DX: R07.89 Other chest pain (principal); I25.10 Atherosclerotic heart disease of native coronary artery without angina pectoris; J44.9 Chronic obstructive pulmonary disease, unspecified; F32.A Depression, unspecified; Z96.643 Presence of artificial hip joint, bilateral; Z96.653 Presence of artificial knee joint, bilateral
CPT/HCPCS: 99283; 71046; 80053; 84484; 85025; 93005

== ENCOUNTER → 2025-05-18 20:45 | Outpatient (REF) | payer MEDICARE, MEDICAID, OTHER, SELFPAY ==
[2025-05-19 11:01] LABS: Urine Character Cloudy (Clear)
[2025-05-19 11:02] LABS: Urine White Cell >100 /HPF (0-5)
== END ==
LOC: OLABN 20:45
PROVIDERS: ATTENDING PHYSICIAN Internal Medicine Geriatric Medicine
DX: R35.0 Frequency of micturition (principal)
CPT/HCPCS: 81003; 81015; 87077; 87086

== ENCOUNTER → 2025-06-20 10:45 | Outpatient (REF) | payer MEDICARE, OTHER, SELFPAY ==
[2025-06-20 11:31] LABS: Blood Urea Nitrogen 33 mg/dl (7-17); Calcium 9.6 mg/dl (8.4-10.2); Carbon Dioxide 27 mmol/L (22-30); Chloride 104 mmol/L (98-107); Glucose 79 mg/dl (70-99); Potassium 3.6 mmol/L (3.5-5.1); Sodium 138 mmol/L (135-145); eGFR 40.05
[2025-06-20 11:43] LABS: Vitamin D, 25-OH*** 45.3 ng/mL (30-80)
== END ==
LOC: OLABN 10:45
PROVIDERS: ATTENDING PHYSICIAN Internal Medicine Geriatric Medicine
DX: E55.9 Vitamin D deficiency, unspecified (principal)
CPT/HCPCS: 36415; 80048; 82306; 83880

== ENCOUNTER → 2025-07-18 10:35 | Outpatient (REF) | payer MEDICARE, OTHER, SELFPAY ==
[2025-07-18 12:06] LABS: Hematocrit 36.0 % (37.0-47.0); Hemoglobin 11.7 g/dL (12.0-16.0); Mean Corp Hgb Conc. 32.5 g/dL (33.0-37.0); Mean Corpuscular Volume 93.5 fL (81.0-99.0); Nucleated Red Blood Cells % 0 %; Platelet Count 228 10^3/uL (130-400); Red Cell Dist. Width 14.4 % (11.5-14.5)
[2025-07-18 15:07] LABS: ALT (SGPT) 12 U/L (0-35); AST (SGOT) 22 U/L (14-36); Albumin 3.2 g/dl (3.5-5.0); Alkaline Phosphatase 127 U/L (38-126); Blood Urea Nitrogen 22 mg/dl (7-17); Calcium 9.4 mg/dl (8.4-10.2); Carbon Dioxide 24 mmol/L (22-30); Chloride 109 mmol/L (98-107); Glucose 78 mg/dl (70-99); HDL Cholesterol 32 mg/dl; LDL Cholesterol, Calculated 53 mg/dl; Potassium 3.9 mmol/L (3.5-5.1); Sodium 139 mmol/L (135-145); Total Protein 5.6 g/dl (6.3-8.2); Very Low Density Lipoprotein 18 mg/dl (0-30); eGFR 54.87
[2025-07-19 08:49] LABS: Glycohemoglobin (HgbA1c) 5.8 % (4.0-5.6)
== END ==
LOC: OLABN 10:35
PROVIDERS: ATTENDING PHYSICIAN Internal Medicine Geriatric Medicine
DX: E78.5 Hyperlipidemia, unspecified (principal); N18.32 Chronic kidney disease, stage 3b; Z13.220 Encounter for screening for lipoid disorders; Z79.899 Other long term (current) drug therapy
CPT/HCPCS: 36415; 80053; 80061; 83036; 85025

== ENCOUNTER → 2025-08-15 23:00 | Outpatient (REF) | payer MEDICARE, OTHER, SELFPAY ==
[2025-08-16 10:59] LABS: Urine Character Slightly Cloudy (Clear)
[2025-08-16 11:13] LABS: Urine Red Blood Cell 0-2 /HPF (0-2); Urine Squamous Cell 0-2 /LPF (Few); Urine White Cell >100 /HPF (0-5)
== END ==
LOC: OLABN 23:00
PROVIDERS: ATTENDING PHYSICIAN Internal Medicine Geriatric Medicine
DX: R35.0 Frequency of micturition (principal)
CPT/HCPCS: 81003; 81015; 87077; 87086

== ENCOUNTER → 2025-10-11 14:37 | Outpatient (REF) | payer MEDICARE, OTHER, SELFPAY ==
[2025-10-11 15:15] LABS: Urine Character Cloudy (Clear)
[2025-10-11 15:35] LABS: Urine White Cell >100 /HPF (0-5)
== END ==
LOC: OLAB 14:37
PROVIDERS: ATTENDING PHYSICIAN Internal Medicine Geriatric Medicine
DX: R35.0 Frequency of micturition (principal)
CPT/HCPCS: 81003; 81015; 87086

== ENCOUNTER → 2025-10-15 11:24 | Outpatient (REF) | payer MEDICARE, OTHER, SELFPAY ==
[2025-10-16 14:36] LABS: Urine Character Cloudy (Clear)
[2025-10-16 15:51] LABS: Urine White Cell >100 /HPF (0-5)
== END ==
LOC: OLABN 11:24
PROVIDERS: ATTENDING PHYSICIAN Internal Medicine Geriatric Medicine
DX: R35.0 Frequency of micturition (principal)
CPT/HCPCS: 81003; 81015; 87077; 87086